=== PATIENT | female | born 1945 | race Caucasian/White ===

== ENCOUNTER 2021-12-17 05:30 | Inpatient (IN) | payer OTHER, MEDICARE ==
[2021-12-14 11:46] LABS: BASOPHILS % (AUTO) 0.3 % (0.0-2.0); EOSINOPHILS # (AUTO) 0.1 K/uL (0.0-0.4); EOSINOPHILS % (AUTO) 0.9 % (0.0-4.0); HEMATOCRIT 39.3 % (36-48); HEMOGLOBIN 13.6 g/dL (12.0-16.0); LYMPHOCYTES # (AUTO) 2.8 K/uL (1.0-5.5); LYMPHOCYTES % (AUTO) 33.6 % (20.5-51.5); MEAN CORPUSCULAR HEMOGLOBIN 31 pg (27-31); MEAN CORPUSCULAR HGB CONC 35 % (32-36); MEAN CORPUSCULAR VOLUME 91 fL (79.0-98.0); MONOCYTES # (AUTO) 0.6 K/uL (0.0-1.0); MONOCYTES % (AUTO) 7.8 % (1.7-9.3); NEUTROPHILS # (AUTO) 4.7 K/uL (1.8-7.7); NEUTROPHILS % (AUTO) 57.4 % (40.0-70.0); PLATELET COUNT (AUTO) 181 K/uL (130-430); RED BLOOD CELL COUNT(AUTO) 4.34 MIL/uL (4.2-6.2); RED CELL DISTRIBUTION WIDTH 12.6 % (9.0-15.0); WHITE BLOOD COUNT (AUTO) 8.2 K/uL (4.8-10.8)
[2021-12-14 11:53] LABS: BILIRUBIN,URINE NEGATIVE (NEGATIVE); BLOOD, URINE NEGATIVE (NEGATIVE); CLARITY/URINE CLEAR (CLEAR); COLOR,URINE YELLOW (YELLOW); GLUCOSE,URINE NEGATIVE (NEGATIVE); KETONES,URINE NEGATIVE (NEGATIVE); LEUKOCYTE ESTERASE ,URINE 2+ (NEGATIVE); NITRITE, URINE NEGATIVE (NEGATIVE); PROTEIN URINE NEGATIVE (NEGATIVE); UROBILINOGEN,URINE 0.2 (0.2-1.0)
[2021-12-14 12:01] LABS: BACTERIA,URINE None Seen /HPF (None Seen); RBC,URINE 0-3 /HPF (0-3)
[2021-12-14 12:02] LABS: MUCUS,URINE None Seen /LPF (None Seen)
[2021-12-14 12:07] LABS: PROTHROMBIN TIME 10.3 SECS (9.5-12.5)
[2021-12-14 12:12] LABS: ANION GAP 4 (5-15); CALCIUM 9.3 mg/dL (8.4-11.0); CHLORIDE 103 mmol/L (98-107); CREATININE 0.79 mg/dL (0.55-1.30); GLUCOSE 91 mg/dL (70-99); UREA NITROGEN, BLOOD 25 mg/dL (8-21)
[~2021-12-17] VITALS: Ht 162.6 cm; Wt 62.1 kg
[2021-12-20] MEDS ORDERED: CEFAZOLIN SOD 2 GM in D5W 50 ML IV ONE (06:30)
[2021-12-20] MEDS ORDERED: SEVOFLURANE 15 MIN GAS INH ONE (07:30)
[2021-12-20] MEDS ORDERED: HYDROmorphone 2 MG/ML VIAL IVP ONE (07:30)
[2021-12-20] MEDS ORDERED: NS IRRIG SOLN 1000 ML IR ONE (07:30)
[2021-12-20] MEDS ORDERED: DEXAMETHASONE SOD PHOSPHATE 4 MG/ML VIAL IVP ONE (07:30)
[2021-12-20] MEDS ORDERED: BUPIVACAINE /PF 0.25% 30 ML VIAL INJ ONE (07:30)
[2021-12-20] MEDS ORDERED: PROPOFOL 200MG/ 20ML VIAL (DIPRIVAN) IV ONE (07:30)
[2021-12-20] MEDS ORDERED: NS 1000 ML IV.SOLN IV ONE (07:30)
[2021-12-20] MEDS ORDERED: LR 1,000 ML IV.SOLN IV ONE (07:30)
[2021-12-20] MEDS ORDERED: MIDAZOLAM HCL 5 MG/5 ML VIAL IVP ONE (07:30)
[2021-12-20] MEDS ORDERED: ePHEDrine sulfate 50 MG/ML VIAL IVP ONE (07:30)
[2021-12-20] MEDS ORDERED: ONDANSETRON HCL 4 MG/2 ML VIAL IVP ONE (07:30)
[2021-12-20] MEDS ORDERED: NALOXONE HCL 0.4 MG/ML AMP (NARCAN) IVP PRN ×5 (10:00→10:15)
[2021-12-20] MEDS ORDERED: HYDROmorphone 1 MG/ML INJ. CARTRIDGE IVP PRN ×4 (10:00→11:00)
[2021-12-20] MEDS ORDERED: ONDANSETRON HCL 4 MG/2 ML VIAL IVP PRN ×2 (10:00→11:45)
[2021-12-20] MEDS ORDERED: KETOROLAC TROMETHAMINE 30 MG VIAL IVP PRN (10:00)
[2021-12-20] MEDS ORDERED: BISACODYL 10 MG/SUPPOSITORY RC PRN (10:15)
[2021-12-20] MEDS ORDERED: DIPHENHYDRAMINE HCL 25 MG CAPSULE PO PRN (10:15)
[2021-12-20] MEDS ORDERED: METOCLOPRAMIDE HCL 10 MG/2 ML VIAL IVP PRN (10:15)
[2021-12-20] MEDS ORDERED: LACTULOSE 20 GM/30 ML UDC PO PRN (10:15)
[2021-12-20] MEDS ORDERED: oxyCODONE HCL 5 MG TABLET PO PRN ×2 (11:00)
[2021-12-20] MEDS ORDERED: LORATADINE 10 MG TABLET PO PRN (11:00)
[2021-12-20] MEDS ORDERED: traMADol HCL HCL 50 MG TABLET (ULTRAM) PO PRN (11:00)
[2021-12-20] MEDS ORDERED: KETOROLAC TROMETHAMINE 30 MG VIAL ONE (11:06)
[2021-12-20] MEDS ORDERED: ACETAMINOPHEN I.V. 1000 MG 100 ML IV ONE ×2 (11:15→11:30)
--- NOTE | 2021-12-20 11:40 | NUR ---
OPENING NOTE RECEIVED REPORT FROM MULTIPLE SPINDLE ROUTER OPERATOR. PATIENT IN BED, RESPIRATIONS EVEN, NON LABORED, BED IN LOW AND LOCKED POSITION CALL LIGHT WITHIN REACH BED ALARM ON. 2L O2 NASAL CANULA. EDUCATED PATIENT REGARDING USE OF CALL LIGHT. PATIENT VERBALIZED UNDERSTANDING AND WAS ABLE TO DEMONSTRATE PROPER USE. BEDSIDE.
[2021-12-20 11:51] VITALS: BP_SYST 136
--- NOTE | 2021-12-20 12:08 | NUR ---
Discharge Planning: DCP faxed pt referral for home health with PT to [facility] [phone] PT notes pending. DCP to follow up. Addendum: 12/20/21 at 1401 by Vilma Ortega DP [facility] [phone] accepted pt. Addendum: 12/20/21 at 1406 by Vilma Ortega DP DCP faxed PT notes to [facility] [phone]
--- NOTE | 2021-12-20 12:15 | NUR ---
NURSE NOTE PATIENT IN BED, RESPIRATIONS EVEN, NON LABORED, BED IN LOW AND LOCKED POSITION, CALL LIGHT WITHIN REACH, SCD'S ON LEFT LEG. POLAR CARE APPLIED.
--- NOTE | 2021-12-20 13:31 | NUR ---
NURSE NOTE INCENTIVE SPIROMETER, EDUCATED PATIENT ON THE INDICATIONS AND PROPER USE OF IS. ANSWERED ALL QUESTIONS, PATIENT VERBALIZED UNDERSTANDING AND WAS ABLE TO DEMONSTRATE PROPER USE. BEDSIDE
[2021-12-20] MEDS: ceFAZolin SODIUM 2 GM in D5W 50 ML IV SCH ×2 (14:48→19:56)
[2021-12-20] MEDS: ACETAMINOPHEN 500 MG TABLET PO SCH ×2 (14:49→21:09)
[2021-12-20] MEDS: KETOROLAC TROMETHAMINE 10 MG TABLET (TORADOL) PO SCH ×2 (14:55→21:10)
--- NOTE | 2021-12-20 15:15 | NUR ---
Nutrition Note RN stated pt wants to avoid sugar and flour and was unsure as to reason or how to order this for pt's plan for advancement of diet (Clear Liquid to Regular diet). RD met w/ pt at bedside. Pt reported that she lost 85# over the past 3 years w/ changes to her dietary regimen (avoidance of breads/pastas/all sugar-laden foods -- except whole fruits). Pt reported that she is OK w/ also eating rice and potatoes and receiving extra vegetables. RD noted in [employer] and modified pt's menu to reflect pt's food preferences. RD notified fire extinguisher charger and she stated she would alert pt's primary RN to order Regular diet.
[2021-12-20 16:00] VITALS: BP_SYST 124
--- NOTE | 2021-12-20 16:45 | NUR ---
AMBULATION ASSISTED PATIENT WITH AMBULATION VIA FWW, TO THE BATHROOM. PATIENT VOIDED 500ML. RETURNED TO BED. PATIENT COMPLAINING OF PAIN, REQUESTED MEDICATIONS
[2021-12-20 17:09] VITALS: BP_SYST 124
--- NOTE | 2021-12-20 19:09 | NUR ---
CLOSING NOTE PROVIDED SBAR TO NIGHT RN. PATIENT IN BED, RESPIRATIONS EVEN, NON LABORED, ON ROOM AIR. POLAR ICE MACHINE ON ORDERED. SCD'S BILATERALLY, IV IS SALINE LOCKED. BED IS IN LOW AND LOCKED POSITION CALL LIGHT WITHIN REACH, BED ALARM ON. IS BEDSIDE. ENDORSED CARE TO NIGHT RN
--- NOTE | 2021-12-20 19:15 | NUR ---
OPENING NOTE REPORT RECEIVED FROM DAYSHIFT NURSE. PATIENT RECEIVED LYING IN BED, AWAKE, ALERT, NO S/S OF ACUTE DISTRESS. BREATHING EVEN AND UNLABORED. HOB RAISED. IV SITE IS PATENT, NO SIGNS OF INFILTRATION OR INFECTION NOTED. RIGHT KNEE DRESSING CDI. POLAR ICE ATTACHED AND OPERATING. CALL LIGHT WITH PATIENT. BED IS LOCKED AND AT LOWEST POSITION. WILL CONTINUE TO MONITOR.
[2021-12-20 20:00] VITALS: BP_SYST 105
[2021-12-20] MEDS: HYDROmorphone 1 MG/ML INJ. CARTRIDGE IVP PRN (20:20)
[2021-12-20] MEDS: SENNOSIDES/DOCUSATE SODIUM 1 TAB TABLET(SENOKOT-S) PO SCH (21:10)
[2021-12-20] MEDS ORDERED: DILT120C89 PO (22:20)
[2021-12-20] MEDS ORDERED: OXYB10TA30 PO (22:20)
[2021-12-20] MEDS ORDERED: APIX5TAB4 PO (22:20)
--- NOTE | 2021-12-20 23:00 | NUR ---
ROUNDS PATIENT IN BED RESTING. NO SIGNS OF DISCOMFORT NOTED. ALL NEEDS MET. WILL CONTINUE TO MONITOR.
[2021-12-21 00:51] VITALS: BP_SYST 95
[2021-12-21] MEDS: HYDROmorphone 1 MG/ML INJ. CARTRIDGE IVP PRN (01:56)
--- NOTE | 2021-12-21 03:00 | NUR ---
ROUNDS ESCORTED TO BATHROOM. PATIENT GAIT STEADY. TOLERATED WELL. ALL NEEDS MET. WILL CONTINUE TO MONITOR.
[2021-12-21] MEDS: ceFAZolin SODIUM 2 GM in D5W 50 ML IV SCH (03:23)
[2021-12-21] MEDS: KETOROLAC TROMETHAMINE 10 MG TABLET (TORADOL) PO SCH (05:31)
[2021-12-21] MEDS: ACETAMINOPHEN 500 MG TABLET PO SCH (05:31)
--- NOTE | 2021-12-21 06:25 | NUR ---
CLOSING NOTE PATIENT IN BED, AWAKE, ALERT, NO S/S OF ACUTE DISTRESS. BREATHING EVEN AND UNLABORED. HOB RAISED. IV SITE PATENT, NO SIGNS OF INFILTRATION OR INFECTION NOTED. POLAR ICE ATTACHED TO RIGHT KNEE. ALL NEEDS MET THROUGHOUT SHIFT. FALL, SAFETY PRECAUTIONS MAINTAINED THROUGHOUT SHIFT. WILL CONTINUE TO MONITOR UNTIL PATIENT CARE IS ENDORSED TO ONCOMING DAYSHIFT NURSE.
[2021-12-21] MEDS ORDERED: OXYIR5 PO (06:48)
[2021-12-21] MEDS ORDERED: ACET-2634 PO (06:48)
[2021-12-21] MEDS ORDERED: CEFA250S32 PO (06:49)
--- NOTE | 2021-12-21 07:40 | NUR ---
RN OPENING NOTE REPORT WAS ENDORSED BY NIGHT NURSE. PATIENT IS AWAKE AND ALERT SITTING UP IN BED. PATIENT STATES SURGEON CAME IN AT BEDSIDE OK TO DISCHARGE AFTER MORNING LABS. PATIENT EDUCATED AUTOMATION DRIVER LIGHT FOR ASSISTANCE. CALL LIGHT IS WITH HER NO OTHER NEEDS AT THIS TIME.
[2021-12-21 07:57] LABS: ALANINE AMINOTRANSFERASE 23 U/L (12-78); ALBUMIN 3.2 g/dL (3.4-4.8); ANION GAP 6 (5-15); ASPARTATE AMINOTRANSFERASE 20 U/L (10-37); CALCIUM 8.4 mg/dL (8.4-11.0); CHLORIDE 98 mmol/L (98-107); CREATININE 1.08 mg/dL (0.55-1.30); GLUCOSE 95 mg/dL (70-99); TOTAL BILIRUBIN 0.4 mg/dL (0.0-1.0); UREA NITROGEN, BLOOD 21 mg/dL (8-21)
[2021-12-21 08:04] LABS: BASOPHILS % (AUTO) 0.2 % (0.0-2.0); HEMATOCRIT 33.5 % (36-48); HEMOGLOBIN 11.4 g/dL (12.0-16.0); LYMPHOCYTES # (AUTO) 1.5 K/uL (1.0-5.5); LYMPHOCYTES % (AUTO) 11.8 % (20.5-51.5); MEAN CORPUSCULAR HEMOGLOBIN 31 pg (27-31); MEAN CORPUSCULAR HGB CONC 34 % (32-36); MEAN CORPUSCULAR VOLUME 91 fL (79.0-98.0); NEUTROPHILS # (AUTO) 10.2 K/uL (1.8-7.7); PLATELET COUNT (AUTO) 156 K/uL (130-430); RED BLOOD CELL COUNT(AUTO) 3.66 MIL/uL (4.2-6.2); RED CELL DISTRIBUTION WIDTH 12.7 % (9.0-15.0); WHITE BLOOD COUNT (AUTO) 12.7 K/uL (4.8-10.8)
[2021-12-21] MEDS: SENNOSIDES/DOCUSATE SODIUM 1 TAB TABLET(SENOKOT-S) PO SCH (08:31)
[2021-12-21 08:35] VITALS: BP_SYST 103
--- NOTE | 2021-12-21 08:49 | NUR ---
medication patients scheduled medication given per order. patient complains pain medicated per order. patient had PT. patient is using IS up to 3,000. patient is aware of discharge order. spouse at bedside.
[2021-12-21] MEDS ORDERED: DECADRON 4 MG TABLET PO SCH (09:00)
[2021-12-21] MEDS ORDERED: APIXABAN 2.5 MG TABLET PO SCH (09:00)
[2021-12-21] MEDS ORDERED: DILTIAZEM HCL 120 MG CAP.SR.24H PO SCH (09:00)
--- NOTE | 2021-12-21 09:59 | NUR ---
Per Ariane who answered the phone, and said that SAW THE PT AT 0630 AND HAS CLEARED PT FOR DISCHARGE.
--- NOTE | 2021-12-21 10:26 | NUR ---
DR. LUIS SPOKE WITH DR. LUIS INFORMED OF POTASSIUM AND OTHER LABS, PER OK TO DISCHARGE HOME JUST RECOMMENDS FOLLOWING UP WITH PRIMARY FOR POTASSIUM. PATIENT INFORMED AND EDUCATED
[2021-12-21 10:33] VITALS: BP_SYST 103
--- NOTE | 2021-12-21 11:25 | NUR ---
discharge patient discharged per order. patients iv catheter removed catheter intact. applied gauze and tape to insertion site. id band removed. all belongings sent home with patient. patient wheeled out to [facility] care. patient has no further questions regarding discharge. States she has the phone numbers to make appointments. Patient has prescriptions at home already
== END 2021-12-21 11:25 | disposition home health service (06) | DRG 470 ==
LOC: SMU 05:30 → UNDOADMIN 05:30 → SMU 12-20 06:00
PROVIDERS: ADMIT Student in an Organized Health Care Education/Training Program; ATTEND Student in an Organized Health Care Education/Training Program
PROC: 0SRC0J9 Replacement of Right Knee Joint with Synthetic Substitute, Cemented, Open Approach (ICD-10-PCS; principal; 2021-12-20 07:38)
DX: M17.11 Unilateral primary osteoarthritis, right knee (principal); Z20.822 Contact with and (suspected) exposure to COVID-19
CPT/HCPCS: 36415; 71045; 73560-TC; 80048; 80053; 81000; 85025; 85610-TC; 85730-TC; 87081; 88304; 88305; 88311; 94010; 94760; 96379; 97116-GP; 97530-GP; C1713; C1776; J0131; J0690; J1100; J1170; J1885; J2250; J2405; J2704; J3490; J7030; J7060; J7120; J8540; U0003